=== PATIENT | male | born 1940 | race African-American/Black ===

== ENCOUNTER 2025-02-11 07:15 | Inpatient (IN) | payer OTHER, MEDICAID ==
[~2025-02-11] VITALS: Ht 167.6 cm; Wt 70.6 kg
[2025-02-11 07:51] LABS: ABG BASE EXCESS -0.8 mmol/L (-2.0-3.0); ABG OXYGEN SATURATION 95.0 % (94.0-98.0); ABG PCO2 37.3 mmHg (35.0-48.0); ABG PH 7.415 (7.350-7.450); ABG PO2 82.7 mmHg (83.0-108.0); ABG TOTAL HEMOGLOBIN 12.8 G/dL (13.5-17.5); FLOW, BLOOD GAS 6.00 L/min (0.00-30.00); FRACTIONATED INSPIRED OXYGEN 44.0 %; SITE, ABG RIGHT RADIAL
[2025-02-11] MEDS ORDERED: IPRATROPIUM NEB FS 0.5 MG/2.5 ML AMPUL.NEB ONE (07:54)
[2025-02-11] MEDS ORDERED: ALBUTEROL FS 2.5 MG/3 ML VIAL.NEB ONE (07:54)
[2025-02-11 07:55] LABS: PLATELET COUNT (AUTO) 228 K/uL (150-450); RED BLOOD CELL COUNT(AUTO) 5.14 MIL/uL (4.5-6.0); RED CELL DISTRIBUTION WIDTH 18.9 % (11.5-15.0); WHITE BLOOD COUNT (AUTO) 7.9 K/uL (4.3-11.0)
[2025-02-11 07:59] VITALS: O2SAT 97
[2025-02-11 08:04] LABS: CALCIUM, SERUM 8.8 mg/dL (8.5-10.1); CREATININE 1.5 mg/dL (0.6-1.3); SODIUM SERUM 138 mmol/L (136-145); UREA NITROGEN, BLOOD 26 mg/dL (7-18)
[2025-02-11] MEDS: IPRATROPIUM NEB FS 0.5 MG/2.5 ML AMPUL.NEB NEB ONE (08:06)
[2025-02-11] MEDS: ALBUTEROL FS 2.5 MG/3 ML VIAL.NEB CONTNEB ONE (08:06)
[2025-02-11 08:14] LABS: LACTIC ACID 5.1 mmol/L (0.4-2.0)
[2025-02-11 08:41] VITALS: O2SAT 99
[2025-02-11] MEDS: AZITHROMYCIN 500 MG in IV D5W 250 ML IV ONE (09:00)
[2025-02-11] MEDS ORDERED: CEFTRIAXONE 1GM BAG (ER ONLY) 50 ML IV ONE (09:00)
[2025-02-11] MEDS: CEFTRIAXONE 1 G in IV D5W 50 ML IV ONE (09:18)
[2025-02-11 11:08] LABS: LACTIC ACID REFLEX 1.6 mmol/L (0.4-1.9)
[2025-02-11] MEDS ORDERED: FURO40TA5 PO (11:21)
[2025-02-11] MEDS ORDERED: IPRA3AMP23 IH (11:21)
[2025-02-11] MEDS ORDERED: INSU100I40 SQ (11:21)
[2025-02-11] MEDS ORDERED: VITAMIN C PO (11:21)
[2025-02-11] MEDS ORDERED: ASPI-1169 PO (11:21)
[2025-02-11] MEDS ORDERED: PANT40TA49 PO (11:21)
[2025-02-11] MEDS ORDERED: VITAMIN D3 PO (11:21)
[2025-02-11] MEDS ORDERED: ATOR20TA PO (11:21)
[2025-02-11] MEDS ORDERED: APIX5TAB PO (11:21)
[2025-02-11] MEDS ORDERED: FLUT16SP BNOSTRILS (11:21)
[2025-02-11] MEDS ORDERED: ONDANSETRON HCL/PF 4 MG/2 ML VIAL IVP PRN (12:30)
[2025-02-11] MEDS ORDERED: MAGNESIUM HYDROXIDE 30 ML UDC PO PRN (12:30)
[2025-02-11] MEDS ORDERED: Z GUARD REMEDY 4 OZ OINT TP PRN (12:30)
[2025-02-11] MEDS ORDERED: MAG HYDROX/AL HYDROX/SIMETH 30 ML UDC PO PRN (12:30)
[2025-02-11] MEDS ORDERED: ZOLPIDEM TARTRATE 5 MG TABLET PO PRN (12:30)
[2025-02-11] MEDS ORDERED: ACETAMINOPHEN 325 MG TABLET PO PRN (12:30)
[2025-02-11] MEDS: APIXABAN 5 MG TABLET PO SCH (13:19)
[2025-02-11 13:32] LABS: LDL 60.0 mg/dL (0-99)
[2025-02-11] MEDS ORDERED: ALBUTEROL FS 2.5 MG/0.5 ML VIAL.NEB NEB PRN (15:30)
[2025-02-11] MEDS ORDERED: IPRATROPIUM NEB FS 0.5 MG/2.5 ML AMPUL.NEB NEB PRN (15:30)
[2025-02-11 16:00] VITALS: BP 106/74; TEMP 97.9; O2SAT 97
[2025-02-11] MEDS: FUROSEMIDE 40 MG/4 ML VIAL IV SCH (17:23)
[2025-02-11 20:00] VITALS: BP 114/76; TEMP 97.7; O2SAT 95
[2025-02-11] MEDS ORDERED: DEXTROSE 50%-WATER 50 ML DISP.SYRIN IV PRN (21:30)
[2025-02-11] MEDS: INSULIN REGULAR, HUMAN 100 UNIT/ML 3 ML VIAL SQ PRN (22:10)
[2025-02-11] MEDS: BLOOD SUGAR DIAGNOSTIC 1 EACH STRIP IN SCH (22:10)
[2025-02-12] VITALS: BP 109/75; TEMP 97.6; O2SAT 99
[2025-02-12 04:00] VITALS: BP 111/70; TEMP 97.8; O2SAT 100
[2025-02-12 07:52] LABS: PLATELET COUNT (AUTO) 224 K/uL (150-450); RED BLOOD CELL COUNT(AUTO) 4.64 MIL/uL (4.5-6.0); RED CELL DISTRIBUTION WIDTH 18.3 % (11.5-15.0); WHITE BLOOD COUNT (AUTO) 10.2 K/uL (4.3-11.0)
[2025-02-12 07:57] LABS: CALCIUM, SERUM 8.5 mg/dL (8.5-10.1); CREATININE 1.5 mg/dL (0.6-1.3); PHOSPHORUS 3.5 mg/dL (2.5-4.9); SODIUM SERUM 136.0 mmol/L (136-145); UREA NITROGEN, BLOOD 35.0 mg/dL (7-18)
[2025-02-12 08:00] VITALS: BP 126/85; TEMP 98.4; O2SAT 97
[2025-02-12] MEDS: PANTOPRAZOLE 40 MG TABLET.DR PO SCH (08:05)
[2025-02-12 12:00] VITALS: BP 114/86; TEMP 97.4; O2SAT 99
[2025-02-12] MEDS ORDERED: METH4TAB3 PO (13:46)
[2025-02-12 16:09] LABS: APPEARANCE,URINE CLEAR (CLEAR); BLOOD, URINE NEGATIVE Ery/uL (NEGATIVE); LEUKOCYTE ESTERASE ,URINE NEGATIVE (NEGATIVE); NITRITE, URINE NEGATIVE (NEGATIVE); UGLUCOSE TRACE mg/dL (NEGATIVE)
[2025-02-12 16:14] LABS: CREATININE, URINE 44.4 MG/DL (30.0-125.0); URINE SODIUM, RANDOM 55.0 mmol/l (40-220); URINE TOTAL PROTEIN 7.0 mg/dL (0-11.9)
[2025-02-12 16:26] LABS: ADD URINE CULTURE NO; SQUAMOUS EPITHELIAL CELL,UR 0-2 /HPF (None Seen)
[2025-02-12 17:07] LABS: EOSINOPHIL,URINE None Seen
== END 2025-02-12 15:13 | disposition home health service (06) | DRG 196 ==
LOC: ER 07:19 → TELE1 10:51
DX: J84.10 Pulmonary fibrosis, unspecified (principal); J96.21 Acute and chronic respiratory failure with hypoxia; E87.20 Acidosis, unspecified; N17.9 Acute kidney failure, unspecified; I27.29 Other secondary pulmonary hypertension; E78.5 Hyperlipidemia, unspecified; D50.9 Iron deficiency anemia, unspecified; E11.22 Type 2 diabetes mellitus with diabetic chronic kidney disease; Z79.01 Long term (current) use of anticoagulants; I13.0 Hypertensive heart and chronic kidney disease with heart failure and stage 1 through stage 4 chronic kidney disease, or unspecified chronic kidney disease; N18.9 Chronic kidney disease, unspecified; J45.909 Unspecified asthma, uncomplicated; I50.9 Heart failure, unspecified; Z86.711 Personal history of pulmonary embolism; Z20.822 Contact with and (suspected) exposure to COVID-19; Z99.81 Dependence on supplemental oxygen
CPT/HCPCS: 36415; 36600; 71045-TC; 80048-TC; 80061-TC; 81001; 82247-TC; 82248-TC; 82570-TC; 82803-TC; 82962-TC; 83605-TC; 83735-TC; 83880; 84100-TC; 84300-TC; 84443-TC; 84484-TC; 85025-TC; 87040-TC; 87081-TC; 93307-TC; 93970-TC; 94799-TC; 97116-TC; 97530-TC; A4223; G0378; J0456; J0696; J1815; J1938; J2919; J7060